=== PATIENT | female | born 1990 | race Two or more races ===

== ENCOUNTER 2020-06-18 01:33 | Emergency (ER) | payer SELFPAY ==
[~2020-06-18] VITALS: Ht 157.5 cm; Wt 81.6 kg
[2020-06-18 02:08] LABS: Basophils # (auto) 0 10 ^3/uL (0-0.2); Basophils % (auto) 0.5 % (0.0-2.0); Eosinophils # (auto) 0.1 10 ^3/uL (0-0.8); Eosinophils % (auto) 0.6 % (0.0-7.0); Hematocrit 44.3 % (36.0-46.0); Lymphocytes # (auto) 3.1 10 ^3/uL (0.4-5.4); Lymphocytes % (auto) 31.2 % (10.0-50.0); Mean Corpuscular Hemoglobin 29.4 pg (28.0-32.0); Mean Corpuscular Hgb Conc. 33.9 g/dL (32.0-36.0); Mean Corpuscular Volume 86.9 fL (80.0-100.0); Monocytes # (auto) 0.7 10 ^3/uL (0-1.3); Monocytes % (auto) 7.4 % (0.0-12.0); Neutrophils # (auto) 5.9 10 ^3/uL (1.6-8.6); Neutrophils % (auto) 60.3 % (37.0-80.0); Nucleated Red Blood Cells % 0.1 %; Platelet Count (auto) 320 10^3/uL (140-450); Red Cell Distribution Width 12.7 % (11.8-14.3); White Blood Cell 9.8 10^3/uL (4.4-10.8)
[2020-06-18 02:18] LABS: Urine Bacteria FEW /hpf (None Seen); Urine Blood Negative /uL (Negative); Urine WBC 2 /hpf (0 - 5)
[2020-06-18 02:26] LABS: Albumin 4.2 g/dL (3.4-5.0); BUN/Creatinine Ratio 13.2; Calcium 8.8 mg/dL (8.5-10.1); Potassium 3.3 mmol/L (3.5-5.1)
[2020-06-18 02:29] LABS: Bilirubin, Total 0.6 mg/dL (0.2-1.0)
[2020-06-18 04:00] VITALS: BP 102/61
== END 2020-06-18 05:31 | disposition home or self-care (01) ==
LOC: ER 01:35
DX: R19.7 Diarrhea, unspecified (principal); T49.0X5A Adverse effect of local antifungal, anti-infective and anti-inflammatory drugs, initial encounter; Y92.89 Other specified places as the place of occurrence of the external cause
CPT/HCPCS: 36415; 80053; 81001; 85025

== ENCOUNTER 2021-10-03 07:24 | Emergency (ER) | payer MEDICAID ==
[~2021-10-03] VITALS: Ht 157.5 cm; Wt 72.9 kg
[2021-10-03 08:39] VITALS: BP 116/78
[2021-10-03] MEDS ORDERED: AMOX500T92 PO (09:24)
[2021-10-03] MEDS ORDERED: ACET-1158 PO (09:24)
== END 2021-10-03 09:28 | disposition home or self-care (01) ==
LOC: ER 07:24
DX: H66.91 Otitis media, unspecified, right ear (principal); Z79.899 Other long term (current) drug therapy; Z79.2 Long term (current) use of antibiotics

== ENCOUNTER 2023-11-25 18:30 | Emergency (ER) | payer SELFPAY ==
[~2023-11-25] VITALS: Ht 157.5 cm; Wt 80.8 kg
[~2023-11-25 18:30] MED LIST: ACET500T58 PO; AMOX500T92 PO
[2023-11-25 19:38] LABS: Urine Bacteria MOD /hpf (None Seen); Urine Blood 1+ /uL (Negative); Urine Clarity Turbid (Clear); Urine Color Yellow (Yellow); Urine Mucus FEW (None Seen); Urine Protein, UAD 1+ (Negative); Urine Specific Gravity 1.018 (1.001-1.035); Urine Urobilinogen Normal (Negative); Urine WBC 230 /hpf (0 - 5); Urine WBC Clumps PRESENT /hpf (None Seen); Urine pH 6.5 (5.0-9.0)
[2023-11-25] MEDS ORDERED: CEPH500C PO (21:15)
[2023-11-25] MEDS: CEPHALEXIN 250 MG CAP PO ONE (21:24)
[2023-11-25 21:26] VITALS: BP 107/64; PULSE 74; RESP 19; TEMP 98.7; O2SAT 97
== END 2023-11-25 21:35 | disposition home or self-care (01) ==
LOC: ER 18:30
DX: N39.0 Urinary tract infection, site not specified (principal); Z98.890 Other specified postprocedural states
CPT/HCPCS: 81001